=== PATIENT | male | born 1990 | race African-American/Black ===

== ENCOUNTER 2017-10-30 08:25 | Emergency (ER) | payer MEDICAID, OTHER ==
[~2017-10-30] VITALS: Ht 5703.2 cm; Wt 73.5 kg
[~2017-10-30 08:25] MED LIST: HYDR-569 PO
[2017-10-30 08:46] VITALS: BP 143/74
[2017-10-30] MEDS ORDERED: DOXY100C2 PO (08:58)
== END 2017-10-30 09:25 | disposition home or self-care (01) ==
LOC: ER 08:26
DX: L03.211 Cellulitis of face (principal); F15.10 Other stimulant abuse, uncomplicated; Z88.2 Allergy status to sulfonamides; Z56.0 Unemployment, unspecified
CPT/HCPCS: 99283